=== PATIENT | male | born 1990 | race Two or more races ===

== ENCOUNTER 2019-07-07 22:29 | Emergency (ER) | payer SELFPAY ==
[~2019-07-07] VITALS: Ht 167.6 cm; Wt 70.8 kg
[2019-07-07 22:54] VITALS: BP 128/86
[2019-07-07 23:31] LABS: Basophils # (auto) 0 uL; Basophils % (auto) 0.6 % (0.0-2.0); Eosinophils # (auto) 0.5 uL; Eosinophils % (auto) 7.3 % (0.0-7.0); Hematocrit 42.1 % (41.0-53.0); Lymphocytes # (auto) 2.2 uL; Lymphocytes % (auto) 34.8 % (10.0-50.0); Mean Corpuscular Hemoglobin 29.8 pg (28.0-32.0); Mean Corpuscular Hgb Conc. 33.1 g/dL (32.0-36.0); Mean Corpuscular Volume 89.9 fL (80.0-100.0); Monocytes # (auto) 0.4 uL; Monocytes % (auto) 6.3 % (0.0-12.0); Neutrophils # (auto) 3.2 uL; Platelet Count (auto) 269 10^3/uL (140-450); Red Blood Cells 4.68 10^6/uL (4.5-5.90); Red Cell Distribution Width 14.1 % (11.8-14.3); White Blood Cell 6.2 10^3/uL (4.4-10.8)
[2019-07-07 23:48] LABS: Albumin 3.9 g/dL (3.4-5.0); Anion Gap 6 (5-15); BUN/Creatinine Ratio 13.5; Blood Urea Nitrogen 12 mg/dL (7-18); Calcium 8.7 mg/dL (8.5-10.1); Carbon Dioxide 28 mmol/L (21-32); Chloride 106 mmol/L (98-107); GFR African American 129 mL/min; GFR Non-African American 107 mL/min; Glucose 92 mg/dL (74-106); Potassium 3.5 mmol/L (3.5-5.1); Sodium 140 mmol/L (136-145)
[2019-07-07 23:49] LABS: Salicylate < 1.7 mg/dL (2.8-20.0)
[2019-07-07 23:50] LABS: Acetaminophen < 2.0 ug/mL (10-30)
[2019-07-07 23:51] LABS: Alanine Aminotransferase 24 U/L (16-61); Alkaline Phosphatase 89 U/L (45-117); Aspartate Aminotransferase 15 U/L (15-37); Bilirubin, Total 0.2 mg/dL (0.2-1.0); Total Protein 7.5 g/dL (6.4-8.2)
== END 2019-07-08 01:02 | disposition left against medical advice (07) ==
LOC: EDBD 22:29 → ER 22:36
DX: R44.3 Hallucinations, unspecified (principal); Z53.21 Procedure and treatment not carried out due to patient leaving prior to being seen by health care provider
CPT/HCPCS: 36415; 80053; 80320; 80329; 85025

== ENCOUNTER 2019-07-23 07:05 | Emergency (ER) | payer SELFPAY ==
[~2019-07-23] VITALS: Ht 167.6 cm; Wt 61.2 kg
[2019-07-23 07:24] VITALS: BP 131/87
[2019-07-23] MEDS ORDERED: AZITHROMYCIN 250 MG TAB PO ONE (08:30)
== END 2019-07-23 08:32 | disposition home or self-care (01) ==
LOC: ER 07:05
DX: J20.9 Acute bronchitis, unspecified (principal); F15.10 Other stimulant abuse, uncomplicated

== ENCOUNTER 2019-07-23 23:28 | Emergency (ER) | payer SELFPAY ==
[~2019-07-23] VITALS: Ht 167.6 cm; Wt 63.5 kg
[2019-07-24 00:45] LABS: Basophils # (auto) 0.1 uL; Basophils % (auto) 0.9 % (0.0-2.0); Eosinophils # (auto) 0.4 uL; Eosinophils % (auto) 5.3 % (0.0-7.0); Hematocrit 41.4 % (41.0-53.0); Hemoglobin 14.1 g/dL (13.5-17.5); Lymphocytes # (auto) 2.8 uL; Lymphocytes % (auto) 40.4 % (10.0-50.0); Mean Corpuscular Hemoglobin 30.5 pg (28.0-32.0); Mean Corpuscular Volume 89.7 fL (80.0-100.0); Monocytes # (auto) 0.6 uL; Monocytes % (auto) 8.2 % (0.0-12.0); Neutrophils # (auto) 3.1 uL; Neutrophils % (auto) 45.2 % (37.0-80.0); Nucleated Red Blood Cells % 0.2 %; Platelet Count (auto) 338 10^3/uL (140-450); Red Blood Cells 4.62 10^6/uL (4.5-5.90); Red Cell Distribution Width 14.6 % (11.8-14.3); White Blood Cell 6.9 10^3/uL (4.4-10.8)
[2019-07-24 01:01] LABS: Albumin 4.1 g/dL (3.4-5.0); Calcium 9.2 mg/dL (8.5-10.1)
[2019-07-24 01:03] LABS: Urine Bacteria NONE SEEN /hpf (None Seen); Urine Blood Negative /uL (Negative); Urine Mucus FEW (None Seen); Urine Specific Gravity 1.035 (1.001-1.035); Urine Sperm PRESENT /hpf (None Seen); Urine WBC <1 /hpf (0 - 3)
[2019-07-24 01:03] LABS: BUN/Creatinine Ratio 17.9
[2019-07-24 01:05] LABS: Amphetamine Screen, Urine POSITIVE (NEGATIVE); Barbiturate Scree,Urine NEGATIVE (NEGATIVE); Benzodiazephine Screen, Urine NEGATIVE (NEGATIVE); Cannabinoid Screen, Urine NEGATIVE (NEGATIVE); Cocaine Screen, Urine NEGATIVE (NEGATIVE); Opiate Scree,Urine NEGATIVE (NEGATIVE); Phencyclidine Screen, Urine NEGATIVE (NEGATIVE)
[2019-07-24 01:06] LABS: Bilirubin, Total 0.4 mg/dL (0.2-1.0); Total Protein 7.9 g/dL (6.4-8.2)
[2019-07-24 04:58] VITALS: BP 114/74
== END 2019-07-24 06:54 | disposition home or self-care (01) ==
LOC: ER 23:30
DX: F15.10 Other stimulant abuse, uncomplicated (principal); R53.1 Weakness
CPT/HCPCS: 36415; 80053; 80307; 81001; 85025; 94761

== ENCOUNTER 2019-08-12 16:20 | Emergency (ER) | payer SELFPAY ==
[~2019-08-12] VITALS: Ht 167.6 cm; Wt 61.2 kg
[2019-08-12 16:40] VITALS: BP 122/76
== END 2019-08-12 21:19 | disposition left against medical advice (07) ==
LOC: ER 16:20
DX: R05 Cough (principal); Z53.21 Procedure and treatment not carried out due to patient leaving prior to being seen by health care provider

== ENCOUNTER 2019-08-13 20:41 | Emergency (ER) | payer SELFPAY ==
[~2019-08-13] VITALS: Ht 167.6 cm; Wt 61.2 kg
[2019-08-13 22:38] LABS: Basophils # (auto) 0.1 uL; Basophils % (auto) 0.6 % (0.0-2.0); Eosinophils # (auto) 0.7 uL; Eosinophils % (auto) 6.9 % (0.0-7.0); Hematocrit 41.5 % (41.0-53.0); Hemoglobin 13.9 g/dL (13.5-17.5); Lymphocytes # (auto) 2.7 uL; Lymphocytes % (auto) 27.3 % (10.0-50.0); Mean Corpuscular Hemoglobin 30.6 pg (28.0-32.0); Mean Corpuscular Hgb Conc. 33.6 g/dL (32.0-36.0); Monocytes # (auto) 0.9 uL; Monocytes % (auto) 8.8 % (0.0-12.0); Neutrophils # (auto) 5.7 uL; Neutrophils % (auto) 56.4 % (37.0-80.0); Platelet Count (auto) 301 10^3/uL (140-450); Red Blood Cells 4.56 10^6/uL (4.5-5.90); Red Cell Distribution Width 14.6 % (11.8-14.3)
[2019-08-13 22:58] LABS: Salicylate < 1.7 mg/dL (2.8-20.0)
[2019-08-13 22:59] LABS: Alanine Aminotransferase 29 U/L (16-61); Albumin 4.4 g/dL (3.4-5.0); Anion Gap 5 (5-15); Aspartate Aminotransferase 20 U/L (15-37); BUN/Creatinine Ratio 17.9; Blood Alcohol < 3.0 mg/dL (0-5); Blood Urea Nitrogen 17 mg/dL (7-18); Calcium 9.1 mg/dL (8.5-10.1); Carbon Dioxide 32 mmol/L (21-32); Chloride 104 mmol/L (98-107); GFR African American 120 mL/min; GFR Non-African American 99 mL/min; Glucose 97 mg/dL (74-106); Potassium 4.4 mmol/L (3.5-5.1); Sodium 141 mmol/L (136-145)
[2019-08-13 23:02] LABS: Alkaline Phosphatase 96 U/L (45-117); Bilirubin, Total 0.5 mg/dL (0.2-1.0); Total Protein 8.3 g/dL (6.4-8.2)
[2019-08-13 23:06] LABS: Acetaminophen < 2.0 ug/mL (10-30)
[2019-08-14 00:52] VITALS: BP 134/83
== END 2019-08-14 01:55 | disposition left against medical advice (07) ==
LOC: ER 20:41
DX: R53.1 Weakness (principal); Z59.0 Homelessness
CPT/HCPCS: 36415; 71045; 80053; 80320; 80329; 85025

== ENCOUNTER 2020-01-16 03:35 | Emergency (ER) | payer SELFPAY | END 2020-01-16 04:07 | disposition left against medical advice (07) | LOC: EDBD 03:35 → ER 03:38 | DX: R41.82 Altered mental status, unspecified (principal); Z53.21 Procedure and treatment not carried out due to patient leaving prior to being seen by health care provider ==

== ENCOUNTER 2020-03-30 20:44 | Emergency (ER) | payer SELFPAY ==
[~2020-03-30] VITALS: Ht 167.6 cm; Wt 72.6 kg
[2020-03-30 23:14] VITALS: BP 128/87
== END 2020-03-30 23:31 | disposition home or self-care (01) ==
LOC: ER 20:46
DX: H57.89 Other specified disorders of eye and adnexa (principal); F23 Brief psychotic disorder; R44.2 Other hallucinations; F41.9 Anxiety disorder, unspecified; F31.9 Bipolar disorder, unspecified

== ENCOUNTER 2020-05-02 05:55 | Emergency (ER) | payer SELFPAY ==
[~2020-05-02] VITALS: Ht 167.6 cm; Wt 63.5 kg
[2020-05-02 06:01] VITALS: BP 114/82
== END 2020-05-02 06:09 | disposition left against medical advice (07) ==
LOC: ER 05:55 → EDBD 05:55 → ER 06:09
DX: R07.89 Other chest pain (principal); Z53.21 Procedure and treatment not carried out due to patient leaving prior to being seen by health care provider

== ENCOUNTER 2020-05-02 12:10 | Emergency (ER) | payer SELFPAY ==
[~2020-05-02] VITALS: Ht 167.6 cm; Wt 72.6 kg
[2020-05-02 12:37] VITALS: BP 114/85
== END 2020-05-02 17:11 | disposition home or self-care (01) ==
LOC: ER 12:10
DX: S16.1XXA Strain of muscle, fascia and tendon at neck level, initial encounter (principal); F15.90 Other stimulant use, unspecified, uncomplicated; Z59.0 Homelessness; X58.XXXA Exposure to other specified factors, initial encounter; Y93.89 Activity, other specified; Y92.89 Other specified places as the place of occurrence of the external cause; Y99.8 Other external cause status
CPT/HCPCS: 99282; J7030

== ENCOUNTER 2020-05-06 17:31 | Emergency (ER) | payer SELFPAY ==
[~2020-05-06] VITALS: Ht 167.6 cm; Wt 72.6 kg
[2020-05-06 19:50] LABS: Amphetamine Screen, Urine POSITIVE (NEGATIVE); Barbiturate Scree,Urine NEGATIVE (NEGATIVE); Benzodiazephine Screen, Urine NEGATIVE (NEGATIVE); Cannabinoid Screen, Urine NEGATIVE (NEGATIVE); Cocaine Screen, Urine NEGATIVE (NEGATIVE); Opiate Scree,Urine NEGATIVE (NEGATIVE); Phencyclidine Screen, Urine NEGATIVE (NEGATIVE)
[2020-05-06 20:00] LABS: Urine Amorphous Crystal FEW /hpf (None Seen); Urine Bacteria NONE SEEN /hpf (None Seen); Urine Blood Negative /uL (Negative); Urine Mucus FEW (None Seen); Urine Specific Gravity 1.038 (1.001-1.035); Urine WBC 4 /hpf (0 - 3)
[2020-05-06 21:29] VITALS: BP 125/70
== END 2020-05-06 21:31 | disposition home or self-care (01) ==
LOC: ER 17:31
DX: F20.9 Schizophrenia, unspecified (principal); F41.9 Anxiety disorder, unspecified; F15.10 Other stimulant abuse, uncomplicated; Z59.0 Homelessness
CPT/HCPCS: 80307; 81001

== ENCOUNTER 2020-07-24 11:56 | Emergency (ER) | payer SELFPAY ==
[~2020-07-24] VITALS: Ht 167.6 cm; Wt 72.6 kg
[2020-07-24 12:14] VITALS: BP 120/85
[2020-07-24 12:44] LABS: Urine Bacteria FEW /hpf (None Seen); Urine Blood Negative /uL (Negative); Urine Specific Gravity 1.018 (1.001-1.035); Urine Sperm PRESENT /hpf (None Seen); Urine WBC 1 /hpf (0 - 3)
== END 2020-07-24 14:25 | disposition left against medical advice (07) ==
LOC: ER 11:56
DX: R10.9 Unspecified abdominal pain (principal); Z53.21 Procedure and treatment not carried out due to patient leaving prior to being seen by health care provider
CPT/HCPCS: 81001; J7050

== ENCOUNTER → 2021-09-21 | Emergency (ER) | payer SELFPAY ==
[~2021-09-21] VITALS: Ht 167.6 cm; Wt 85.7 kg
[~2021-09-21] MED LIST: TETANUS-DIPTH-ACEL PERTUSSIS 0.5ML SYR Tdap IM ONE
[2021-09-21 21:25] VITALS: BP 129/81
== END | disposition left against medical advice (07) ==
LOC: ER 21:25
DX: M79.671 Pain in right foot (principal); Z53.21 Procedure and treatment not carried out due to patient leaving prior to being seen by health care provider